=== PATIENT | female | born 1960 | race Two or more races ===

== ENCOUNTER 2025-06-30 17:05 | Emergency (ER) | payer OTHER, MEDICAID ==
[~2025-06-30] VITALS: Ht 167.6 cm; Wt 68.4 kg
[2025-06-30 17:07] VITALS: BP 147/81; TEMP 97.7
[2025-06-30 17:15] VITALS: PULSE 92
--- NOTE | 2025-06-30 17:30 | ED.PDOC ---
History of Present Illness HPI Comments This is a 64-year-old female with past medical history of stage IV cervical cancer on chemotherapy in [facility], DVT on Eliquis presented to the ED with a chief complaint of abnormal lab. The patient stated that today she got call from her oncologist about high potassium in recent BMP prompted this visit. The patient complaint of swelling of the left leg for 7 days. She has prior history of DVT and currently on Eliquis 5 mg b.i.d. she denies chest pain, shortness of breath, abdominal pain, nausea, vomiting, dysuria, hematuria or any altered bowel habit. Chief Complaint: Abnormal LAB's Time Seen by MD: 17:14 Allergies: Coded Allergies: NO KNOWN ALLERGIES (Unverified , 06/30/25) Information Source: Patient, Relative (Sibling) Mode of Arrival: Ambulatory Severity: Moderate Timing: Days Duration: Since onset Prehospital treatment: None Past Medical History PAST MEDICAL HISTORY: Cancer Past Medical History (Other): DVT Surgical History: Denies all surgeries [employer] History: Cervical Cancer Family History Family History: Reviewed,noncontributory to illness Social History Smoker: Cigarettes, Less Than 1 Pack/Day Alcohol: Denies ETOH Use Drugs: Marijuana Lives In: Home Constitutional: reports: fatigue, weakness; denies: chills, diaphoresis, fever, malaise, sweats, others EENTM: denies: blurred vision, double vision, ear bleeding, ear discharge, ear drainage, ear pain, ear ringing, eye pain, eye redness, hearing loss, mouth pain, mouth swelling, nasal discharge, nose bleeding, nose congestion, nose pain, photophobia, tearing, throat pain, throat swelling, voice changes, others Respiratory: denies: cough, hemoptysis, orthopnea, SOB at rest, shortness of breath, SOB with excertion, stridor, wheezing, others Cardiovascular: denies: chest pain, dizzy spells, diaphoresis, Dyspnea on exertion, edema, irregular heart beat, left arm pain, lightheadedness, palpitations, PND, syncope, others Gastrointestinal: denies: abdomen distended, abdominal pain, blood streaked bowels, constipated, diarrhea, dysphagia, difficulty swallowing, hematemesis, melena, nausea, poor appetite, poor fluid intake, rectal bleeding, rectal pain, vomiting, others Genitourinary: denies: abnormal vagina bleeding, burning, dyspareunia, dysuria, flank pain, frequency, hematuria, incontinence, pain, , vagina discharge, urgency, others Neurological: denies: dizziness, fainting, headache, left sided numbness, left sided weakness, numbness, paresthesia, pre-existing deficit, right sided numbness, right sided weakness, seizure, speech problems, tingling, tremors, weakness, others Musculoskeletal: reports: back pain, others (Painful swelling of the left leg); denies: gout, joint pain, joint swelling, muscle pain, muscle stiffness, neck pain Integumetry: denies: bruises, change in color, change in hair/nails, dryness, laceration, lesions, lumps, rash, wounds, others Allergic/Immunocompromised: denies: Difficulty Healing, Frequent Infections, Hives, Itching, others Hematologic/Lymphatic: reports: blood clots; denies: anemia, easy bleeding, easy bruising, swollen glands, others Endocrine: denies: excessive hunger, excessive sweating, excessive thirst, excessive urination, flushing, intolerance to cold, intolerance to heat, unexplained weight gain, unexplained weight loss, others Physical Exam General Appearance: Normal HEENT: Normal ENT Inspection, Pharynx Normal, TMs Normal Neck: Full Range of Motion, Non-Tender, Normal, Normal Inspection Respiratory: Chest Non-Tender, Lungs Clear, No Accessory Muscle Use, No Respiratory Distress, Normal Breath Sounds Cardiovascular: No Edema, No JVD, No Murmur, No Gallop, Normal Peripheral Pulses, Regular Rate/Rhythm Breast Exam: Deferred Gastrointestinal: No Organomegaly, Non Tender, Normal Bowel Sounds Genitalia: Deferred Pelvic: Deferred Rectal: Deferred Extremities: Leg edema, Normal capillary refill, Pedal edema, Swelling, Tender Neurologic: sign designer II-XII nml as Tested, No Motor Deficits, No Sensory Deficits Cerebellar Function: NOT DONE Reflexes: NOT DONE Skin: NOT DONE Peripheral Pulses: 2+ carotid (R), 2+ carotid (L), 2+ femoral (R), 2+ femoral (L), 2+ dorsalis pedis (R), 2+ dorsalis pedis (L), 2+ Radial (R), 2+ Radial (L), 2+ Brachial (R), 2+ Brachial (L) Lymphatic: NOT DONE Was a procedure done? Was a procedure done?: No Differential Dx Considerations may include: Hyperkalemia, DVT of the left leg, cellulitis, CHF, cervical cancer with metastasis X-Ray, Labs, Meds, VS Vital Signs Date Time Temp Pulse Resp B/P (MAP) Pulse Ox O2 Delivery O2 Flow Rate FiO2 06/30/25 17:15 92 06/30/25 17:07 97.7 90 18 147/81 99 97.7 Lab Test 06/30/25 18:11 Range/Units White Blood Count 3.7 L 4.4-10.8 10^3/uL Red Blood Count 2.76 L 4.0-5.20 10^6/uL Hemoglobin 9.3 L 12.2-16.2 g/dL Hematocrit 28.2 L 36.0-46.0 % Mean Corpuscular Volume 102.0 H 80.0-100.0 fL Mean Corpuscular Hemoglobin 33.8 H 28.0-32.0 pg Mean Corpuscular Hemoglobin Concent 33.1 32.0-36.0 g/dL Red Cell Distribution Width 14.9 H 11.8-14.3 % Platelet Count 83 L 140-450 10^3/uL Mean Platelet Volume 8.5 6.9-10.8 fL Neutrophils (%) (Auto) 64.2 37.0-80.0 % Lymphocytes (%) (Auto) 24.7 10.0-50.0 % Monocytes (%) (Auto) 10.6 0.0-12.0 % Eosinophils (%) (Auto) 0.2 0.0-7.0 % Basophils (%) (Auto) 0.3 0.0-2.0 % Neutrophils # (Auto) 2.4 1.6-8.6 10 ^3/uL Lymphocytes # (Auto) 0.9 0.4-5.4 10 ^3/uL Monocytes # (Auto) 0.4 0-1.3 10 ^3/uL Eosinophils # (Auto) 0 0-0.8 10 ^3/uL Basophils # (Auto) 0 0-0.2 10 ^3/uL Nucleated Red Blood Cells 0.2 % Prothrombin Time Pending Prothrombin Time INR Pending Activated Partial Thromboplast Time Pending Sodium Level 142 136-145 mmol/L Potassium Level 5.9 *H 3.5-5.1 mmol/L Chloride Level 112 H 98-107 mmol/L Carbon Dioxide Level 22 20-31 mmol/L Anion Gap 8 5-15 Blood Urea Nitrogen 10 9-23 mg/dL Creatinine 1.20 H 0.550-1.02 mg/dL Glomerular Filtration Rate Calc 50 >90 mL/min BUN/Creatinine Ratio 8.3 L 10.0-20.0 Serum Glucose 73 L 74-106 mg/dL Calcium Level 10.1 8.7-10.4 mg/dL X-Ray, Labs, Meds, VS Comment ORDERING PHYSICIAN: VIJAYA SANDOVAL RESIDENT PROCEDURE(s): BLDVT - BiLat Lower DVT REASON: Swelling of the left leg ORDER NUMBER(s): [id number], ACCESSION NUMBER(s): [id number] Bilateral lower extremity venous duplex Clinical History: Swelling of the left leg Comparison: None Technique: Duplex Doppler evaluation of the deep venous systems of both lower extremities from the common femoral veins to the popliteal veins including color Doppler and spectral/pulsed waveform analysis was performed. Findings: RIGHT SIDE: The common femoral vein demonstrates appropriate compressibility and waveform variability. There is compressibility/patency of the great saphenous vein at the proximal thigh. The femoral vein demonstrates appropriate compressibility and waveform variability. The deep femoral vein demonstrates appropriate compressibility and waveform variability. The popliteal vein demonstrates appropriate compressibility and waveform variability. There is normal compressibility at the tibioperoneal trunk. LEFT SIDE: The common femoral vein demonstrates no flow compressibility or augmentation There is no flow compressibility or augmentation of the greater saphenous vein at the proximal thigh The femoral vein demonstrates noncompressibility no flow or augmentation The deep femoral vein demonstrates appropriate compressibility and waveform variability. The popliteal vein demonstrates appropriate compressibility and waveform variability. There is normal compressibility at the tibioperoneal trunk. Impression: 1. No right femoropopliteal venous thrombosis. 2. Positive deep venous thrombosis left lower extremity, involving the common femoral vein proximal greater saphenous vein and femoral vein. 3. 1.97 cm lymph node Images Reviewed?: Images reviewed and evaluated by me Time of 1ST Reevaluation: 06:49 Reevaluation 1ST: Unchanged Patient Education/Counseling: Diagnosis, Treatment Family Education/Counseling: Diagnosis, Treatment Comments This is a 64-year-old female with a history of stage IV cervical cancer on chemotherapy, DVT on Eliquis presented to the ED abnormal lab result hyperkalemia and swelling of the left leg. DVT scan of the lower extremities positive for DVT of the left leg BNP demonstrated potassium 5.9 and mild KUNAL Started heparin drip for DVT as per protocol, hyperkalemia protocol management, and NS 500 IV bolus Patient will be admitted for management of DVT and hyperkalemia SEPSIS Sepsis Screen Date sepsis recognized/suspect: Jun 30, 2025 Time Sepsis recognized/suspect: 1708 Recent Procedure: No On Antibiotic Therapy: No Respiratory Rate >20: No Heart Rate >90: No Temp<36 C (96.8 F) or >38.3 C: No SBP <90 or MAP <65 mmHG: No New Acute Mental Status Change: No Is the patient on CPAP, BIPAP,: No Physician Orders Electrocardigram (06/30/25 17:11) Bilat Lower Dvt (06/30/25 17:26) Urinalysis (06/30/25 17:26) Platelet Monitoring (06/30/25 18:39) Vte Protocol Initiated (06/30/25 18:39) Heparin Per Standardized Proce (06/30/25 18:39) Discontinue All Im Injections (06/30/25 18:39) PTPTT (06/30/25 18:39) Heparin Sodium (Porcine) (06/30/25 18:45) Heparin Drip/D5w 100units/Ml (06/30/25 18:45) Insulin R (Human) (Insulin R) (06/30/25 19:00) Dextrose 50% Syringe (06/30/25 19:00) Albuterol Medneb (Ventolin Medneb) (06/30/25 19:00) Sodium Bicarb 50meq/50ml Syr (06/30/25 19:00) Furosemide Injection (Lasix Injection) (06/30/25 19:00) Sodium Chloride 0.9% (06/30/25 19:00) * Radiologist Consult (06/30/25 18:56) Vital Signs Date Time Temp Pulse Resp B/P (MAP) Pulse Ox O2 Delivery O2 Flow Rate FiO2 06/30/25 17:15 92 06/30/25 17:07 97.7 90 18 147/81 99 97.7 Laboratory Tests Test 06/30/25 18:11 White Blood Count 3.7 10^3/uL (4.4-10.8) L Departure 1 Departure Time of Disposition: 19:01 Impression: Primary Impression: Left leg DVT Additional Impression: Hyperkalemia Disposition: 09 ADMITTED INPATIENT Admit to: Tele Condition: Guarded Critical Care Note Critical Care Time?: No Stability Stability form required: VIJAYA Horowitz RESIDENT Jun 30, 2025 17:30
[2025-06-30 18:24] LABS: Hematocrit 28.2 % (36.0-46.0); Hemoglobin 9.3 g/dL (12.2-16.2); Mean Corpuscular Hemoglobin 33.8 pg (28.0-32.0); Mean Corpuscular Volume 102.0 fL (80.0-100.0); Nucleated Red Blood Cells % 0.2 %
--- NOTE | 2025-06-30 18:24 | DVH ---
Bilateral lower extremity venous duplex Clinical History: Swelling of the left leg Comparison: None Technique: Duplex Doppler evaluation of the deep venous systems of both lower extremities from the common femora l veins to the popliteal veins including color Doppler and spectral/pulsed waveform analysis was perf ormed. Findings: RIGHT SIDE: The common femoral vein demonstrates appropriate compressibility and waveform variability. There is compressibility/patency of the great saphenous vein at the proximal thigh. The femoral vein demonstrates appropriate compressibility and waveform variability. The deep femoral vein demonstrates appropriate compressibility and waveform variability. The popliteal vein demonstrates appropriate compressibility and waveform variability. There is normal compressibility at the tibioperoneal trunk. LEFT SIDE: The common femoral vein demonstrates no flow compressibility or augmentation There is no flow compressibility or augmentation of the greater saphenous vein at the proximal thigh The femoral vein demonstrates noncompressibility no flow or augmentation The deep femoral vein demonstrates appropriate compressibility and waveform variability. The popliteal vein demonstrates appropriate compressibility and waveform variability. There is normal compressibility at the tibioperoneal trunk. Impression: 1. No right femoropopliteal venous thrombosis. 2. Positive deep venous thrombosis left lower extremity, involving the common femoral vein proximal g reater saphenous vein and femoral vein. 3. 1.97 cm lymph node
[2025-06-30 18:30] LABS: Sodium 142 mmol/L (136-145)
[2025-06-30 18:31] LABS: Anion Gap 8 (5-15); Carbon Dioxide 22 mmol/L (20-31)
[2025-06-30 18:32] LABS: Calcium 10.1 mg/dL (8.7-10.4)
[2025-06-30 18:36] LABS: BUN/Creatinine Ratio 8.3 (10.0-20.0); Blood Urea Nitrogen 10 mg/dL (9-23)
[2025-06-30 18:38] LABS: Chloride 112 mmol/L (98-107); Glucose 73 mg/dL (74-106)
[2025-06-30 18:46] LABS: Potassium 5.9 mmol/L (3.5-5.1)
[2025-06-30] MEDS ORDERED: SODIUM BICARB 8.4% 50Meq/50ml SYR INJ IV ONE (19:00)
[2025-06-30] MEDS ORDERED: DEXTROSE (50%) 50ML SYRG IV ONE (19:00)
[2025-06-30] MEDS ORDERED: ALBUTEROL SULF 2.5 MG/0.5ML(0.5%) NEB SOLN NEB ONE (19:00)
[2025-06-30] MEDS ORDERED: FUROSEMIDE 20 MG/2 ML VIAL IV ONE (19:00)
[2025-06-30] MEDS ORDERED: InsuLIN REG 1unit/0.01ml Soln (100units/ml) IV ONE (19:00)
[2025-06-30] MEDS ORDERED: SODIUM CHLORIDE 0.9% 500 ML IV ONE (19:00)
[2025-06-30 19:10] VITALS: RESP 16; O2SAT 98
[2025-06-30] MEDS: ALBUTEROL SULF 2.5 MG/0.5ML(0.5%) NEB SOLN ONE (19:20)
[2025-06-30 19:28] LABS: INR 1.16 (0.9-1.15); Partial Thromboplastin Time 25.1 SEC (24.5-34.5); Prothrombin Time 12.1 sec (9.3-11.8)
[2025-06-30] MEDS ORDERED: HEPARIN DRIP/D5W 100UNITS/ML 250 ML IV SCH (20:00)
[2025-06-30] MEDS ORDERED: HEPARIN SODIUM (PORCINE) 5000 UNITS/ML 1ML VIAL IV ONE (20:00)
--- NOTE | 2025-07-01 11:13 | ECG ---
[facility] Test Date: 2025-06-30 Test Time: 17:15:41 Pat Name: WALLY VELEZ Department: ED Room: Gender: F Md Do Resident Urgent Care: ALEXANDER : 1960 Requested By: GISEL OLIVERA Order Number: [id number] Reading MD: Measurements Intervals [place] Rate: 92 P: -17 MO: 132 QRS: 67 QRSD: 90 T: 50 QT: 336 QTc: 416 Interpretive Statements Sinus rhythm Please click the below link to view image of tracing.
== END 2025-06-30 20:25 | disposition left against medical advice (07) ==
LOC: ER 17:05
DX: I82.402 Acute embolism and thrombosis of unspecified deep veins of left lower extremity (principal); E87.5 Hyperkalemia; F12.90 Cannabis use, unspecified, uncomplicated; F17.210 Nicotine dependence, cigarettes, uncomplicated; Z79.01 Long term (current) use of anticoagulants; Z86.718 Personal history of other venous thrombosis and embolism
CPT/HCPCS: 36415; 80048; 85025; 85610; 85730; 93005; 93970; 94640